=== PATIENT | female | born 2005 | race Two or more races ===

== ENCOUNTER → 2024-12-24 | Outpatient (REF) | payer OTHER ==
[2024-12-24 17:34] LABS: HCG, SERUM QUALITATIVE NEGATIVE (NEGATIVE); HCG, SERUM QUANTITATIVE < 2.6 MIU/ML (<4.2)
== END ==
LOC: M LAB REF 17:07
PROVIDERS: ATTEND Physician Assistant
DX: Z32.00 Encounter for pregnancy test, result unknown (principal)

== ENCOUNTER → 2025-05-14 | Outpatient (CLI) | payer OTHER ==
[~2025-05-14] MED LIST: ISOVUE-300 61% 100 ML VIAL As Ordered ONE; LIDOCAINE 1% MDV 20 ML VIAL As Ordered ONE; methylPREDNISolone 80 MG/ML SUSP 1 ML VIAL As Ordered ONE
== END ==
LOC: M RAD 14:42
PROVIDERS: ATTEND Student in an Organized Health Care Education/Training Program
DX: M25.551 Pain in right hip (principal)
CPT/HCPCS: 20610; 77002; J1010; Q9967